=== PATIENT | female | born 1950 | race Native Hawaiian/Other Pacific Islander ===

== ENCOUNTER 2022-10-23 10:46 | Observation (INO) | payer OTHER ==
[2022-10-23] VITALS (13 sets, daily range): BP systolic 98–123; BP diastolic 42–67; TEMP 98.1–99.2; Ht 152.4 cm; Wt 48.2 kg
[~2022-10-23] VITALS: Ht 152.4 cm; Wt 48.2 kg
[2022-10-23 11:51] LABS: PLATELET COUNT 292 K/uL (152-353)
[2022-10-23 12:03] LABS: POTASSIUM 3.3 mmol/L (3.6-5.2)
[2022-10-23] MEDS ORDERED: CHLORTHALID25 MG PO (16:09)
[2022-10-23] MEDS ORDERED: METO50TA27 PO (16:10)
[2022-10-23] MEDS ORDERED: PARO20TA3 PO (16:10)
[2022-10-23] MEDS ORDERED: ASPIRIN81 M2 PO (16:11)
[2022-10-23] MEDS ORDERED: POTASSIUM99 MG PO (16:12)
[2022-10-23] MEDS ORDERED: VITAMIN D31000 UNI4 PO (16:12)
[2022-10-23] MEDS ORDERED: [UNRECOGNIZED DRUG - OTHER] PO (16:13)
[2022-10-24] VITALS: BP 142/70; TEMP 98.8
[2022-10-24 04:00] VITALS: BP 131/72; TEMP 98.8
[2022-10-24 06:18] LABS: PLATELET COUNT 194 K/uL (152-353)
[2022-10-24 08:00] VITALS: BP 147/79; TEMP 98.8
[2022-10-24 12:00] VITALS: BP 125/68; TEMP 97.9
== END 2022-10-24 14:51 | disposition home or self-care (01) ==
LOC: MED/SURG 10:46
PROVIDERS: ADMIT Internal Medicine; ATTEND Internal Medicine
DX: I11.0 Hypertensive heart disease with heart failure (principal); R06.02 Shortness of breath; R07.89 Other chest pain; J44.9 Chronic obstructive pulmonary disease, unspecified; Z79.01 Long term (current) use of anticoagulants; I50.9 Heart failure, unspecified; R09.89 Other specified symptoms and signs involving the circulatory and respiratory systems
CPT/HCPCS: 36415; 36430; 80053; 81002; 82607; 82728; 82747; 82948; 83540; 83550; 85027; 86850; 86900; 86901; 86922; 93005; 99220; G0378; G0379; P9016

== ENCOUNTER 2023-01-17 09:23 | Outpatient (CLI) | payer OTHER ==
[~2023-01-17 09:23] MED LIST: ASPIRIN81 M2 PO; CHLORTHALID25 MG PO; METO50TA27 PO; PARO20TA3 PO; POTASSIUM99 MG PO; VITAMIN D31000 UNI4 PO; [UNRECOGNIZED DRUG - OTHER] PO
[2023-01-17 10:08] LABS: PLATELET COUNT 235 K/uL (152-353)
== END 2023-01-17 19:10 | disposition home or self-care (01) ==
LOC: LABW 09:23
PROVIDERS: ATTEND Internal Medicine Gastroenterology
DX: D50.8 Other iron deficiency anemias (principal)
CPT/HCPCS: 36415; 85027